=== PATIENT | female | born 2005 | race Two or more races ===

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

== ENCOUNTER 2025-03-14 00:28 | Emergency (ER) | payer MEDICAID ==
[~2025-03-14] VITALS: Ht 162.6 cm; Wt 78.7 kg
--- NOTE | 2025-03-14 01:32 | DVH ---
EXAM: CT HEAD WITHOUT CONTRAST INDICATION: Status post head injury vision changes lightheadedness dizzi TECHNIQUE: CT of the head without intravenous contrast. Radiation Dose Information: CT Dose: CTDI volume is 91.56 mGy. Dose-length product is 1619.79 mGy*cm The dose indicators for CT are the volume Computed Tomography (CT) Dose Index (CTDIvol) and the Dose Length Product (DLP), and are measured in units of mGy and mGy-cm, respectively. These indicators are not patient dose, but values generated from the CT scanner acquisition factors. The report includes radiation exposure data for exposures received during this examination. COMPARISON: CT HEAD WITHOUT CONTRAST on DOS: 08/30/22 FINDINGS: There is no evidence of acute intracranial hemorrhage, extra-axial collection, mass effect, midline shift, herniation or hydrocephalus. The ventricles, sulci and cisterns are age appropriate. The pineda-white differentiation is intact. The visualized paranasal sinuses and mastoid air cells are clear. The surrounding soft tissues and osseous structures are unremarkable. IMPRESSION: No acute intracranial abnormality.
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
[2025-03-14] MEDS ORDERED: IBUP-1456 PO (01:49)
[2025-03-14 01:55] VITALS: BP 105/62; PULSE 74; RESP 18; TEMP 98.5; O2SAT 100
== END 2025-03-14 01:55 | disposition home or self-care (01) ==
LOC: ER 00:28
DX: S06.0X0A Concussion without loss of consciousness, initial encounter (principal); S09.8XXA Other specified injuries of head, initial encounter; X58.XXXA Exposure to other specified factors, initial encounter; Y93.89 Activity, other specified; Y92.89 Other specified places as the place of occurrence of the external cause; Y99.8 Other external cause status
CPT/HCPCS: 70450